=== PATIENT | female | born 1940 ===

== ENCOUNTER 2016-11-14 18:39 | Inpatient (IN) | payer MEDICARE, OTHER ==
[~2016-11-14] VITALS: Ht 157.5 cm; Wt 66.9 kg
[2016-11-14 19:35] VITALS: BMI 27.8
[2016-11-14] MEDS ORDERED: SYNTHROID75 MCG PO (20:09)
[2016-11-14] MEDS ORDERED: INDERAL 40 MG T40 MG PO (20:09)
[2016-11-14] MEDS ORDERED: SINGULAIR10 MG PO (20:11)
[2016-11-14] MEDS ORDERED: XANAX1 MG PO (20:11)
[2016-11-14] MEDS ORDERED: EFFEXOR XR150 MG PO (20:12)
[2016-11-14] MEDS ORDERED: ZOCOR40 MG PO (20:13)
[2016-11-14] MEDS ORDERED: VITAMIN D2000 UNIT PO (20:14)
[2016-11-14] MEDS ORDERED: VIC-FORTE CAPSUL1 MG PO (20:14)
[2016-11-14] MEDS ORDERED: ZYRTEC10 MG PO (20:14)
[2016-11-14] MEDS ORDERED: CALCIUM 600+D T1 TA1 PO (20:15)
[2016-11-14] MEDS ORDERED: IBUPROFEN400 MG PO (20:16)
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
[2016-11-15 06:57] LABS: HEMOGLOBIN A1C 5.3 % (4.8-6.0)
[2016-11-15 07:00] LABS: LDL-HDL RATIO 1.7 ratio (1.5-3.5)
[2016-11-15 07:40] VITALS: BP 170/80
[2016-11-15 13:24] VITALS: Ht 157.5 cm; Wt 66.9 kg
--- NOTE | 2016-11-15 14:10 | NUR ---
RECEIVED THIS AM SITTING IN CHAIR IN HALLWAY AT NURSES STATION.IS ORIENTED,CALM AND COOPERATIVE.ADMITS TO HALLUCINATIONS BUT NOT OBSERVED TO BE HAVING HALLUCINATIONS BY THIS NURSE.COMPLIANT WITH MEDS AND STAFF.WILL CONTINUE WITH PLAN OF CARE,MONITOR FOR CHANGES AND SAFETY.
--- NOTE | 2016-11-15 20:55 | NUR ---
RECEIVED IN DAYROOM. SETTING IN A RECLINING CHAIR. CALM AND COOPERATIVE WITH CARE AND ASSESSMENT. CALM AND COOPERATIVE WITH CARE AND ASSESSMENT. NO SIGNS OF PARANOIA. NO SIGNS OF HALLUCINATIONS. ENCOURAGE TO EXPRESS NEEDS. PM MEDS GIVEN ORDERED. CONTINUES TO SET QUIETLY IN WHEELCHAIR. CONTINUE PLAN OF CARE
--- NOTE | 2016-11-16 02:50 | NUR ---
AWAKENED AND AMBULATED OUT TO NURSES DESK. SHE WAS MAKING ALL KINDS OF BIZARRE STATEMENTS AND COMPLAINING OF THE "SMELL" IN HER ROOM. " I HAVE THOUGHT ABOUT KILLING MYSELF FOR A LONG TIME. I WANT TO GO HOME AND KILL MYSELF, THE BEST AND QUICKEST WAY, THE SMELL OR PILLS." WILL CONTINUE TO MONITOR CLOSELY.
--- NOTE | 2016-11-16 07:30 | NUR ---
In and out cath provided for urine specimen. Patient tolerated well, will send to lab.
[2016-11-16 08:08] VITALS: BP 155/96
[2016-11-16 08:31] LABS: UDS - AMPHET NEGATIVE QUAL (NEGATIVE); UDS - BARB NEGATIVE QUAL (NEGATIVE); UDS - BENZO NEGATIVE QUAL (NEGATIVE); UDS - COCAINE NEGATIVE QUAL (NEGATIVE); UDS - METH NEGATIVE QUAL (NEGATIVE); UDS - OPIATE NEGATIVE QUAL (NEGATIVE); UDS - PCP NEGATIVE QUAL (NEGATIVE); UDS - THC NEGATIVE QUAL (NEGATIVE)
[2016-11-16 09:11] LABS: APPEARANCE CLEAR (CLEAR); BACTERIA FEW /hpf (NONE SEEN); BILIRUBIN NEGATIVE (NEGATIVE); COLOR YELLOW (YELLOW); EPITHELIAL CELLS OCC /hpf (0-5); GLUCOSE NEGATIVE (NEGATIVE); KETONE MODERATE mg/dL (NEGATIVE); LEUKOCYTE ESTERASE TRACE (NEGATIVE); MUCUS <1+ /lpf (NONE SEEN); NITRITE NEGATIVE (NEGATIVE); PROTEIN NEGATIVE (NEGATIVE); RED CELLS - URINE 0-5 /hpf (0-5); SPECIFIC GRAVITY 1.015 (1.005-1.020); UROBILINOGEN NORMAL (NORMAL); WHITE CELLS - URINE OCC /hpf (0-5)
--- NOTE | 2016-11-16 13:20 | PSY ---
PATIENT NAME:ANN SANTO MEDICAL RECORD: [id number] : 36 LOCATION:[facility] ADMISSION DATE: 11/14/16 ACCOUNT: [id number] PSYCHIATRIC EVALUATION DATE OF EVALUATION: 11/15/16 IDENTIFYING DATA: The patient is 76 years old and she is admitted to the hospital on a voluntary basis. CHIEF COMPLAINT: Psychosis. HISTORY OF PRESENT ILLNESS: The patient is a very nice lady who initially presents fairly well. She has a good preservation of basic social skills and social interaction, but upon close questioning, it becomes quite clear that she is psychotic and upon examination, it becomes quite clear that she is demented. It seems that the patient lives in an apartment here. She is convinced that people are pumping gases of some kind into her apartment and it is trying to poison her. Apparently, there are other delusions about how these imaginary people are trying to harass her for imaginary and inconsistent and illogical reasons. The patient is very distressed by it and thoroughly convinced by it and does not even have insight that what she is saying sounds odd. Upon examination, it is clear that she has severe cognitive impairment. She denies depressive symptoms as well as substance abuse. She denies past psychiatric history. PAST MEDICAL HISTORY: Significant for hypothyroidism, COPD, hypercholesterolemia and hypertension. PAST PSYCHIATRIC HISTORY: Negative by her account and it is questionably reliable. FAMILY PSYCHIATRIC HISTORY: Denied. ALLERGIES: CODEINE AND HYDROCODONE. CURRENT MEDICATIONS: Include Inderal, Zocor, Synthroid. SOCIAL HISTORY: The patient is . She has no children. She is from [place], but lived most of her life in [place]. 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 She has no history of drug or alcohol abuse or legal entanglements and generally functioned reasonably well both socially and occupationally. MENTAL STATUS EXAMINATION: The patient is awake, alert and oriented to person, place and somewhat to situation. She is also oriented somewhat to date. Her mood is euthymic. Her affect is appropriate. Thought processes are goal directed. Memory, concentration and abstraction abilities are mildly impaired and she denies any active intent to harm herself or others. She denies overt psychotic symptoms, although she clearly displays them. She has no thoughts of harming herself or others. ASSETS: Stable living environment. Supportive family members. Stable living environment and supportive family members. LIABILITIES: Limited insight. 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 AXIS II: None. AXIS III: Hypothyroidism, hypertension, chronic obstructive pulmonary disease. AXIS IV: Moderate stressors. AXIS V: Global assessment of functioning is 35. PLAN: At this time, the provisional diagnosis is a dementia, type uncertain, but probably it is Alzheimer disease. I think the psychotic symptoms are associated with that. The patient says her sister has worked in a state hospital for many years and says that she has told her she is manic-depressive, but without a history of mental illness, one does not display habits of first onset of nyla or psychosis at 76. The explanation is much more organic almost certainly and at this point, I am going to have her tested by Dr. Chata Villalpando. I will check a urine drug screen because she is convinced she is being poisoned, but I anticipate the results will be negative. She has no evidence of substance abuse. Clearly, she is demented or impaired cognitively and the pattern appears to be consistent with dementia of the Alzheimer type. I am not going to start her on antipsychotic tonight. I would like to speak with her about this some more tomorrow and at that time, I will tell her what my provisional findings are. I think she is not going to accept that very readily. TRANSINT:[id number] Voice Confirmation ID: [id number] DOCUMENT ID: [id number] NELY HUBER MD at 1320 CC: [id number] DICTATION DATE: 11/15/16 174 CENTER REP: 11/15/16 1838 [facility] IN [facility] [address] [place] [address]
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
[2016-11-16 19:30] VITALS: BP 153/81
--- NOTE | 2016-11-17 01:51 | NUR ---
B) Quiet, watchful of peers. Claims her lost all her money, made no furthur accusations to staff about stealing from her. Correctly states her name, place and time. Somewhat understands why she is here, knows she was having some weird thoughts but unable to explain. No signs of hallucinations or delusions. No tearful episodes this evening. Flat affect, sullen and remains depressed. I) Administer medications as ordered, redirect and reorient PRN. R) Compliant with medications, aloof and guarded. P) Continue to monitor per plan of care.
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
[2016-11-17 08:12] VITALS: BP 147/79
--- NOTE | 2016-11-17 10:00 | NUR ---
Patient is oriented to self, knows she is in the hospital sometimes, but does not know what the name of it is at times. She is suspicious and guarded, did have to remove a male patient away from her as she was saying delusional statements and telling the other patient who is already paranoid to do this or that. When staff moved the male patient from her she followed him and tried to sit by him, explained to her that she was not able to sit by this patient at this time. She was compliant with this request. Patient is sitting under the TV and reading, she is not interacting except sometimes looks over at another patient and tells him to go ahead and go. Patient has participated in groups and she is making bizarre, delusional statements that go way off the subject. Continue to monitor. it is difficult to understand her conversation as she has loose associations and she is delusional.
--- NOTE | 2016-11-17 10:49 | NUR ---
Nutrition Follow Up: Chart reviewed. Pt is eating 44% meal avg on a Regular diet. Wt stable. +BM 11/16/16. Meds and labs noted. Pt with poor po intake. Rec continue current diet. Pt may benefit from an appetite stimulant. RD following.
--- NOTE | 2016-11-17 11:00 | NUR ---
Dr. Villalpando came and gave this patient a SLUMS test. She scored 17/30.
--- NOTE | 2016-11-17 14:49 | NUR ---
PATIENT SUSPICOUS OF ALL MEDICATIONS, AT FIRST REFUSED AND TOLD ME THAT WE WERE TRYING TO OVER-MEDICATE HER, PATIENT WAS REASSURED AND WAS SHOWN HER MEDICATION LABELS, PATIENT COMPLIED WITH MORNING MEDICATION. PATIENT REMAINS SUSPICIOUS, BUT DID COOPERATE DURING GROUP ACTIVITIES WHEN PROMPTED.
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
--- NOTE | 2016-11-17 17:28 | NUR ---
Patient gets up from the table and moves away in a hurry, but Brook asks her what she would like to eat for her next day meals, she stopped and listened, but she has a distressed appearance.
--- NOTE | 2016-11-17 17:32 | NUR ---
While Allison Ross was cleaning the day room. Where patient was sitting she had left a pair of her dirty panties on the book shelf. She had been carrying them around. Staff took them to the laundry room.
--- NOTE | 2016-11-17 17:46 | NUR ---
Patient is watchful and she is pacing around in the dining room, looking out of the windows, sitting then getting back up, she is watching staff and watching patients. Continue to monitor behavior.
[2016-11-17 19:24] VITALS: BP 130/67
--- NOTE | 2016-11-17 22:45 | NUR ---
B) Recieved sitting in a chair in the day room, alert and oriented to self, quiet and isolating, nervous and watching the other patients, I) Administered perscribed medications, redirected and oriented as needed, R) Medication compliant, non social with other patients, P) Continue plan of care, continue to monitor.
[2016-11-18 07:56] VITALS: BP 147/60
--- NOTE | 2016-11-18 12:54 | PN ---
PATIENT:ANN SANTO MEDICAL RECORD: [id number] LOCATION:[facility] ADMISSION DATE: 11/14/16 PROGRESS NOTE DATE OF SERVICE: 11/17/2016 SUBJECTIVE: The patient's case was discussed with staff. She has no new complaint. OBJECTIVE: The patient denies intent to harm herself or others. She generally tolerates her medicines well. ASSESSMENT: No change in diagnoses. PLAN: The patient got up last night about 3:30 in the morning, was very confused and made a number of delusional statements about people trying to hurt her. She was tested by Dr. Chata Villalpando today and clearly has evidence of impairment in the moderate to severe range with a score of 17 on the SLUMS. She clearly is going to need 86-gnlf-h-day supervision and the pattern on the testing was consistent with Alzheimer's disease. This is in agreement with what I observe clinically. TRANSINT:[id number] Voice Confirmation ID: [id number] DOCUMENT ID: [id number] NELY HUBER MD at 1254 CC: [id number] DICTATION DATE: 11/17/16 1225 [employer]ERILE PRODUCTS PROCESSOR: 11/17/16 1724 ADM IN [facility] [address] [place] [address]
--- NOTE | 2016-11-18 12:55 | PN ---
PATIENT:ANN SANTO MEDICAL RECORD: [id number] LOCATION:[facility] ADMISSION DATE: 11/14/16 PROGRESS NOTE DATE OF SERVICE: 11/16/2016 SUBJECTIVE: The patient's case was discussed with staff. She has no new complaint. OBJECTIVE: The patient is very paranoid and delusional. There are some people outside the room that were speaking in and she thinks that they are trying to come in and harm her. She is hypervigilant, believe she might be poisoned. She again insists that she has no psychiatric history. She made some statements about killing herself to the staff last night, but she now retracts them. I do plan to have her tested by Dr. Chata Villalpando. I think her long-term prognosis is guarded. TRANSINT:[id number] Voice Confirmation ID: [id number] DOCUMENT ID: [id number] NELY HUBER MD at 1255 CC: [id number] DICTATION DATE: 11/16/16 1328 TUBE SPLICER: 11/16/16 1556 ADM IN [facility] [address] [place] [address]
--- NOTE | 2016-11-18 13:30 | NUR ---
RECEIVED THIS AM SITTING IN CHAIR AT NURSES STATION.IS ORIENTED TO SELF.AMB PER SELF WITH STEADY GAIT.COMPLIANT WITH MEDS AND STAFF.TALKS WITH PEERS.WILL CONTINUE WITH PLAN OF CARE,MONITOR FOR CHANGES AND SAFETY.
--- NOTE | 2016-11-18 14:31 | NUR ---
Patient has been very paranoid and delusional did over hear her tell another patient that "Last night mu pillow was moving and talking" Unfortunately the other patient said "And it was real wasn't it" They both agreed. Patient is watchful of staff and peers and she is isolative. After lunch she sat in the dining room alone staring blankly at the wall that has the green covered board on it. After lunch she has joined the rest of the patients in the day room.
--- NOTE | 2016-11-18 15:00 | NUR ---
Provided patient her clean pants and shirt, she was shown to the bathromm two times to change in her clothes from the scrubs she slept in, patient told MHT "I've had them on for two weeks" MHT explained "They are clean" Patient hurriedly brought her clothes into the day room and refolded them and sat next to them.
--- NOTE | 2016-11-18 17:43 | NUR ---
Patients sister came to visit and she says that patients behavior is relatively new, she said "I see her every day or talk to her on the phone every day, this is all new" While patients sister was here visiting patient did start with her delusions and paranoia talk, patient did admit that she is seeing things and that she is paranoid, but then she started saying "I haven't had a bath, they won't let me bathe and all they want to do is give me medicine, everyday they change my medicine, it's part of the governement and it is all about the money."
[2016-11-18 19:30] VITALS: BP 132/76
--- NOTE | 2016-11-19 02:28 | NUR ---
B) Recieved in the day room watching TV, alert and oriented to self, hallucinating at times, seeing bugs comeing out of the light, I) Administered perscribed medications, redirected as needed, oriented to place and time, R) medications compliant, very nervous and confused, P) Continue plan of care, continue to monitor.
[2016-11-19 08:38] VITALS: BP 125/78
--- NOTE | 2016-11-19 10:08 | NUR ---
PT IS ANXIOUS AND VERY NERVOUS. PT IS PACING AND DIFFICULT TO REDIRECT. ORIENTED TO PERSON ONLY. PT EXPRESSED HALLUCINATIONS. SHE STATED THAT SHE IS SEEING SPIDERS, TELEPHONE NUMBERS ARE JUMPING OUT AT HER, AND SHE IS SMELLING MORPHINE. MED COMPLIANT. COPING SKILLS REVIEWED WITH PT. ENCOURAGED PT TO EXPRESS FEELINGS AND TELL STAFF WHEN SHE IS FEELING ANXIOUS. PARANOID DELUSIONS NOTED DURING ASSESSMENT. WILL CONTINUE TO MONITOR AND CONTINUE WITH PLAN OF CARE.
[2016-11-19 19:30] VITALS: BP 187/103
--- NOTE | 2016-11-19 20:09 | NUR ---
RECEIVED IN DAYROO. SETTING AT QUIETLY AT TABLE WITH PEERS. READING PAPER. CONFUSED. STATES SHE HASNT HAD MEDS IN THREE DAYS AND THAT SHE HAS BEEN FASTING FOR THOSE THREE DAYS. REDIRECTA ND REORIENT . CONTINUES TO SET QUIETLY READING THE PAPER. CONTINUE PLAN OF CARE
[2016-11-20 11:20] VITALS: BP 139/85
--- NOTE | 2016-11-20 17:53 | NUR ---
Alert and oriented to name, patient hallucinating during assessment this am, talking to unseen person, up and down throughout the day, noted to be looking around hallucinating, guarded.Med compliant Safety maintained. Continue plan of care.
--- NOTE | 2016-11-20 19:55 | NUR ---
RECEIVED IN DAYROOM. SETTING IN CHAIR WITH PEERS AT HER SIDE. CALM AND COOPERATIVE WITH CARE AND ASSESSMENT. NO SIGNS OF HALLUCINATIONS. NO DELUSIONAL OUTBUST. NO SIGNS OF PARANOIA. REDIRECT AND REORIENT NEEDED. CONTINUE PLAN OF CARE
[2016-11-20 20:37] VITALS: BP 169/76
[2016-11-21 14:08] VITALS: BP 152/92
--- NOTE | 2016-11-21 14:57 | PN ---
PATIENT:ANN SANTO MEDICAL RECORD: [id number] LOCATION:[facility] ADMISSION DATE: 11/14/16 PROGRESS NOTE DATE OF SERVICE: 11/20/2016 SUBJECTIVE: The patient's case was discussed with staff. She has no new complaint. OBJECTIVE: The patient is in good behavioral control with limited insight about her condition. She tolerates her medicines well. She is still having some ongoing psychotic symptoms. She has some paranoid and hypervigilance, but she is much less intense in her emotions when describing these. ASSESSMENT: No change in diagnoses. PLAN: Current medicines and therapies have been reviewed and will be maintained. Long-term prognosis is guarded. TRANSINT:[id number] Voice Confirmation ID: [id number] DOCUMENT ID: [id number] NELY HUBER MD at 1457 CC: [id number] DICTATION DATE: 11/20/16 1340 POWER SUPPLY ENGINEER: 11/20/16 1437 ADM IN [facility] [address] [place] [address]
--- NOTE | 2016-11-21 16:49 | NUR ---
RECEIVED THIS AM SITTING IN CHAIR AT NURSES STATION.IS CONFUSED AND PARANOID.QUESTIONS EACH MED AND STATES I DONT KNOW WHERE YOU GOT THEM.WHEN TOLD THEY CAME FROM THE HOSPITAL PHARM[facility]Y SHE SAID THAT'S EVEN WORSE.WOULD NOT TAKE ALL OF HER MEDS.WILL CONTINUE WITH PLAN OF CARE,MONITOR FOR CHANGES AND SAFETY.
[2016-11-21 19:28] VITALS: BP 127/66
--- NOTE | 2016-11-21 23:14 | NUR ---
RECEIVED IN DAYROOM. SETTING IN RECLINER WITH PEERS AT HER SIDE. SOCIALIZING AT TIMES. CALM AND COOPERATIVE WITH CARE AND ASSESSMENT. CONFUSED. REDIRECT AND REORIENT NEEDED. PM MEDS GIVEN ORDERED. RESTING EYES CLOSED AT THIS TIME. [id number] PLAN OF CARE
[2016-11-22 07:57] VITALS: BP 113/63
--- NOTE | 2016-11-22 09:00 | NUR ---
Patient is suspicious and paranoid. Sat with patient to go over am meds. Patient tells me she does not trust me. Explained to her that I understood, but I will go over every medicine and tell you what they are for and show you lab work that provides indication for prescription. Patient watched my every move, she then began making bizarre statements that this nurse was not able to follow. Patient is paranoid in her thoughts, she is less jerky in movements, but her conversations to me and to others is full of accusations about others. I) Provide prescribed meds and reorientate as needed to reality. R) Patient believes her delusions and she did listen when meds and labs were explained to her. She took all of her meds except Ibuprofen and she said she did not have any pain. P) Continue plan of care.
--- NOTE | 2016-11-22 09:09 | NUR ---
Nutrition Follow Up: Chart reviewed. Pt is eating 67% meal avg on a Regular diet. +BM 11/16/16 - no BM x 6 days. Meds noted including Vit D. No new labs to assess. Pt with improved po intake. Rec continue current diet. Pt may need bowel regimen. RD following.
--- NOTE | 2016-11-22 12:46 | PN ---
PATIENT:ANN SANTO MEDICAL RECORD: [id number] LOCATION:[facility] ADMISSION DATE: 11/14/16 PROGRESS NOTE DATE OF SERVICE: 11/21/2016 Psychiatric Progress Note SUBJECTIVE: The patient's case was discussed with staff. She has no new complaint. OBJECTIVE: The patient is in good behavioral control. She had no active hallucinations last night. ASSESSMENT: No change in diagnoses. PLAN: The patient will be started on Effexor at a dose of 37.5 mg twice daily. Effexor is being used to stabilize her underlying mood. This was part of my original treatment strategy, it was simply a matter of starting her on an antipsychotic and making sure she was having reasonable tolerance of that before beginning this medication. TRANSINT:[id number] Voice Confirmation ID: [id number] DOCUMENT ID: [id number] NELY HUBER MD at 1246 CC: [id number] DICTATION DATE: 11/21/16 1519 LAUNCH CHECK OUT: 11/21/16 1551 ADM IN [place] [id number] [place] [address]
[2016-11-22 19:27] VITALS: BP 139/67
--- NOTE | 2016-11-23 00:05 | NUR ---
B) Recieved sitting in the day room, alert and oriented to self, nervous and restless at times, easily startled, withdrawn , I) Administered perscribed medications, redirected and oriented as needed, R) Medication compliant, cooperative with staff, P) Continue plan of care, continue to monitor
[2016-11-23 07:50] VITALS: BP 158/73
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
[2016-11-23 22:07] VITALS: BP 146/84
--- NOTE | 2016-11-24 02:23 | NUR ---
B) recieved sitting in the day room, alert ad oriented to self, withdrawn and keeping to her self, watching TV, calm and pleasant, I) Administered perscribed medications, redirect and oriented as needed, R) Medication compliant, very confused, hallucinating at times, P) Continue plan of care, continue to monitor.
[2016-11-24 08:55] VITALS: BP 162/61
--- NOTE | 2016-11-24 13:20 | NUR ---
(B)RECEIVED PATIENT SITTING IN A CHAIR AT THE NURSE'S STATION. ORIENTED TO SELF AND PLACE RELATING "[facility]. IT'S JUST A BUILDING. NOT A HOSPITAL." DELUSIONAL RELATING "I ALSO HAVE A YEAST INFECTION. I KNOW THE SENSATION. IT COMES OUT OF MY FINGER TIPS" (PATIENT IS TOUCHING EACH END OF HER FINGERS WITH HER THUMB SHE TELLS NURSE THIS). (I)ADMINISTER MEDS AND MONITOR COMPLIANCE. REDIRECT FOR DELUSIONAL THOUGHTS. (R)MED COMPLIANT. POOR REDIRECTION DUE TO INABILITY TO SEPARATE FANTASY FROM REALITY. (P)CONTINUE POC AND MAINTAIN FALL PRECAUTIONS.
--- NOTE | 2016-11-24 15:13 | NUR ---
LATE ENTRY 11/23 SW MET WITH PT'S SISTER, ADI, TO DISCUSS DISCHARGE PLANNING AND MEDICATION CHANGES. PAT VERBALIZED UNDERSTANDING OF MEDICATION ADJUSTMENTS. SW REPORTED PT DENYING MEDICAITON THIS AM. PAT STATED SHE WOULD TALK TO HER ABOUT TAKING HER MEDICATION HERE.
[2016-11-24 19:30] VITALS: BP 154/53
--- NOTE | 2016-11-25 01:39 | NUR ---
Patient was pleasant, polite, calm and quiet. Oriented to person and place. Patient is not exhibiting paranoia at this time. Continue plan of care.
[2016-11-25 09:03] VITALS: BP 99/73
--- NOTE | 2016-11-25 10:45 | NUR ---
B.) Alert and oriented to name and some what to place, states " yes, it's a hospital, but it's just a building not a real hospital." patient looking around with suspicious look on her face. I.) Administer medications and monitor compliance, redirect for any inappropriate behavior and reorient as need. Refocus to reality versus nonreality. R.) Compliant with medications, no evidence of reorientation, as patient can not separate reality for nonreality, verbalized " i smell things, not sure what that thing was." patient paces often and looks confused when given directions. No aggression, paranoia and suspicious behavior. P.) Continue plan of care.
[2016-11-25 19:30] VITALS: BP 156/67
--- NOTE | 2016-11-25 21:33 | NUR ---
B) Recieved sitting in the day room alert and oriented to self, scanning vision, very quiet, watching the room, I) Administered perscribed medications, redirected and oriented as needed, R) Medication compliant, cooperative with staff, waiting for bed, P) Continue plan of care, continue to monitor.
--- NOTE | 2016-11-26 07:54 | PN ---
PATIENT:ANN SANTO MEDICAL RECORD: [id number] LOCATION:[facility] ADMISSION DATE: 11/14/16 PROGRESS NOTE DATE OF SERVICE: 11/24/2016 SUBJECTIVE: No new complaint. OBJECTIVE: The patient continues to exhibit florid paranoid delusional ideation. The patient has been tested in exhibits gnabsszr-lu-dtsxfd dementia. She is tolerating medication change recently done. On exam, mood is somewhat irritable. Affect is overall brittle. Speech is rather terse. Content of thought is positive for paranoid ideation. Sensorium shows no change. ASSESSMENT: No change in diagnosis. PLAN: 1. Continue present medications. 2. Continue supportive therapy. TRANSINT:[id number] Voice Confirmation ID: [id number] DOCUMENT ID: [id number] RUTH KINNEY III, MD at 0754 CC: [id number] DICTATION DATE: 11/24/16 1050 CLINICAL EDITOR: 11/24/16 1304 ADM IN [place] [id number] [place] [address]
[2016-11-26 10:07] VITALS: BP 165/96
--- NOTE | 2016-11-26 14:46 | NUR ---
ORIENTED TO PERSON AND THE FACT THAT SHE IS IN A HOSPTIAL. SOME PARANOIA NOTED BUT PT WILL NOT EXPLAIN FEELINGS. ENCOURAGED PT TO COMMUNICATE NEEDS AND FEELINGS TO STAFF. EXPLAINED TO PT THAT THIS WAS A SAFE PLACE AND SHE COULD SPEAK FREELY. MED COMPLIANT. WILL CONTINUE TO MONITOR AND CONTINUE WITH PLAN OF CARE.
[2016-11-26 19:30] VITALS: BP 134/59
--- NOTE | 2016-11-26 20:10 | NUR ---
RECEIVED IN DAYROOM SETTING IN CHAIR WITH PEERS AT HER SIDE. CALM AND COOPERATIVE WITH CARE AND ASSESSMENTS. NO SIGNS OF HALLUCINATIONS. NO SIGNS OF PARANOIA. REDIRECT AND REORIENT NEEDED. ENCOURAGE TO EXPRESS NEEDS. CONTINUES TO SET QUIETLY. CONTINUE PLAN OF CARE
[2016-11-27 10:31] VITALS: BP 159/80
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
--- NOTE | 2016-11-27 16:52 | NUR ---
RECEIVED THIS AM SITTING IN CHAIR IN HALLWAY AT NURSES STATION.IS ORIENTED.CALM AND COOPERATIVE.HELPS WITH ANOTHER FEMALE PATIENT.COMPLIANT WITH MEDS.WILL CONTINUE WITH PLAN OF CARE,MONITOR FOR CHANGES AND SAFETY.
[2016-11-27 20:00] VITALS: BP 135/65
--- NOTE | 2016-11-27 20:08 | NUR ---
RECEIVED IN DAYROOM. SETTING IN CHAIR WITH A PEER AT HER SIDE. SOCIALIZING WITH A PEER AT TIMES.. CALM AND COOPERATIVE WITH CARE AND ASSESSMENT. NO SIGNS OF HALLUCINATIONS. NO SIGNS OF PARANOIA. REMAINS IN CHAIR CALM AND COOPERATIVE, CONTINUE PLAN OF CARE
[2016-11-28 08:31] VITALS: BP 160/69
--- NOTE | 2016-11-28 10:32 | NUR ---
Nutrition Follow Up: Chart reviewed. Pt is eating 54% meal avg on a Regular diet. +BM 11/27/16. No new labs to assess. Meds noted. Pt with fair po intake at this time. Rec continue current diet. Will send Ensure with meals. Will continue to send selective menus and honor food preferences. RD following.
--- NOTE | 2016-11-28 12:43 | NUR ---
B.) Alert and oriented to name and some what to place, patient rushs out of her room then rushes back in stating" my legs are hurting, I think if I change my pants and socks they will stop hurting." asked patient if she really thought that would help and why.. she states yes but cant explain to me why. Verbalized not today for any type of hallucination other than. "I had dreams all night, worst night I have had, but not so far on seeing and hearing things." I.) Administer medications and monitor compliance. Monitor for any hallucinations or inappropriate behavior. Redirect and refocus to reality versus nonreality as need. Monitor safety. P.) Continue plan of care.
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
[2016-11-28 19:31] VITALS: BP 151/77
--- NOTE | 2016-11-28 23:36 | NUR ---
PATIENT RECIEVED IN DAYROOM, PATIENT DENIES HALLUCINATIONS, DENIES SUICIDAL IDEATIONS. ORIENTED TO PERSON, PLACE, TIME, AND SITUATION. PATIENT SHOWING NO PARANOIA OR SUSPICION, CALMLY TOOK MEDICATION WITHOUT COAXING. CONTINUE TO MONITOR, CONTINUE PLAN OF CARE.
[2016-11-29 08:02] VITALS: BP 146/54
--- NOTE | 2016-11-29 16:40 | PN ---
PATIENT:ANN SANTO MEDICAL RECORD: [id number] LOCATION:[facility] ADMISSION DATE: 11/14/16 PROGRESS NOTE DATE OF SERVICE: 11/28/2016 SUBJECTIVE: The patient's case was discussed with staff. She has no new complaint. OBJECTIVE: The patient is in good behavioral control with limited insight about her condition. She does tolerate her medications well. She is much less delusional and much calmer and cooperative. ASSESSMENT: No change in diagnoses. PLAN: I anticipate the patient can be transitioned out of the hospital soon if this level of improvement is maintained. Her long-term prognosis is guarded. TRANSINT:[id number] Voice Confirmation ID: [id number] DOCUMENT ID: [id number] NELY HUBER MD at 1640 CC: [id number] DICTATION DATE: 11/28/16 1400 CAREER COUNSELOR: 11/28/16 1943 ADM IN [facility] [address] [place] [address]
--- NOTE | 2016-11-29 18:33 | NUR ---
RECEIVED SITTING IN CHAIR IN DAYROOM.ORIENTED TO SELF AND HOSPITAL.DENIES HALLUCINATIONS TODAY.COMPLIANT WITH MEDS.HELPFUL WITH PEERS.QUITE MOST OF THE TIME,SITS AND OBSERVES OTHERS.AMBULATES WITH A STEADY GAIT.WILL CONTINUE WITH PLAN OF CARE,MONITOR FOR CHANGES AND SAFETY.
[2016-11-29 19:14] VITALS: BP 162/70
--- NOTE | 2016-11-29 22:03 | NUR ---
PATIENT IN DAYROOM, WATCHING PEERS AND STAFF. ORIENTED TO PERSON, DENIES HALLUCINATIONS OR THOUGHTS OF SELF HARM. PATIENT STATES SHE HAS A YEAST INFECTION COMING OUT OF HER FINGERS. HAS CONFUSION OF WHERE SHE IS AT THIS TIME. PATIENT REORIENTED. NOT PARANOID OR SUSPICIOUS. PLEASANT AND COOPERATIVE WITH MEDICATION. CONTINUE TO MONITOR, CONTINUE PLAN OF CARE.
[2016-11-30 09:05] VITALS: BP 174/77
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
--- NOTE | 2016-11-30 13:22 | PN ---
PATIENT:ANN SANTO MEDICAL RECORD: [id number] LOCATION:[facility] ADMISSION DATE: 11/14/16 PROGRESS NOTE DATE OF SERVICE: 11/29/2016 SUBJECTIVE: The patient's case was discussed with staff. She has no new complaint. OBJECTIVE: The patient is in good behavioral control with limited insight about her condition. She tolerates her medicines well. ASSESSMENT: No change in diagnoses. PLAN: Current medicines and therapies have been reviewed and will be maintained. Long-term prognosis is guarded. TRANSINT:[id number] Voice Confirmation ID: [id number] DOCUMENT ID: [id number] NELY HUBER MD at 1322 CC: [id number] DICTATION DATE: 11/29/161650 SURGERY SPECIALIST: 11/29/162055 ADM IN [facility] [address] [place] [address]
[2016-11-30 19:30] VITALS: BP 171/82
--- NOTE | 2016-12-01 02:44 | NUR ---
B) Recieved sitting in the dinning room alert and oriented to self, laughted at my jokes appropiately and folowed conversation I) Administered Perscribed medications, redirected as needed, R) Medication compliant, cooperative with staff, friendly and pleasant, P) Continue plan of care, continue to monitor.
--- NOTE | 2016-12-01 08:17 | PN ---
PATIENT:ANN SANTO MEDICAL RECORD: [id number] LOCATION:[facility]112 ADMISSION DATE: 11/14/16 PROGRESS NOTE DATE OF SERVICE: 11/30/2016 SUBJECTIVE: The patient's case was discussed with staff. She has no new complaint. OBJECTIVE: The patient denies intent to harm herself or others. She generally tolerates her medicines well and is much less delusional. Unfortunately, she is not eating as well as she has been, but has no explanation for this. ASSESSMENT: No change in diagnoses. PLAN: The patient will be maintained on current medicines. I think her condition is improving. She actually remembered some of what we talked about yesterday. The information she remembered from yesterday was insignificant and casual [place] and I am impressed that she recalled those. TRANSINT:[id number] Voice Confirmation ID: [id number] DOCUMENT ID: [id number] NELY HUBER MD at 0817 CC: [id number] DICTATION DATE: 11/30/16 1320 RAILROAD MECHANIC: 11/30/16 1813 ADM IN [facility] [address] [place] [id number]
[2016-12-01 08:19] VITALS: BP 142/66
[2016-12-01] MEDS ORDERED: ARICEPT5 MG PO (13:11)
[2016-12-01] MEDS ORDERED: FEXOFENADINE HC60 MG PO (13:11)
[2016-12-01] MEDS ORDERED: RISPERDAL0.5 MG PO (13:12)
[2016-12-01] MEDS ORDERED: EFFEXOR37.5 MG PO (13:12)
[2016-12-01] MEDS ORDERED: DEPAKOTE500 MG PO (13:12)
--- NOTE | 2016-12-01 18:33 | NUR ---
Alert and oriented times three, not sure what situation is, nurse over heard patient talking to another patient stating. " I had hallucinations real bad, I thought they were real, now I'm better and you will be too." Thought process is logical today, ambulated around in room with appropriate conversation with no hallucinations or delusions. Compliant with medications. Plans for discharge today home with sister. Attempted several times to call patient sister as listed on face sheet, number disconnected, programming coordinator Jackie attempted as well. Nurse asked patient if she knew the number she was unable to recall at this time.
[2016-12-01 19:42] VITALS: BP 153/85
--- NOTE | 2016-12-02 01:18 | NUR ---
B) Recieved sitting in the day room, alert and oriented to self, calm and quiet this shift, I) Administered perscribed medications, redirected as needed, R) Medication compliqant, resting quietly now, P) Continue plan of care, continue to monitor.
[2016-12-02 07:48] VITALS: BP 139/68
--- NOTE | 2016-12-02 08:10 | NUR ---
B) PATIENT IS AWAKE AND ALERT AND SHE IS ABLE TO MAKE NEEDS KNOWN. SHE IS NOT MAKING PARANOID STATEMENTS TODAY, SHE HAS TAKEN HER MEDICATIONS. SHE IS CALM, INTERACTS APPROPRIATELY WITH STAFF AND PEERS. PATIENT IS AMBULATORY AND SHE IS INDEPENDENT WITH ADL'S. I) PROVIDE PRESCRIBED PAIN MEDS, REDIRECT NEEDED. R) PATIENT IS CALM AND COMPLIANT WITH MEDS AND UNIT MILIEU. P) CONTINUE PLAN OF CARE.
--- NOTE | 2016-12-02 08:28 | PN ---
PATIENT:ANN SANTO MEDICAL RECORD: [id number] LOCATION:[facility] ADMISSION DATE: 11/14/16 PROGRESS NOTE DATE OF SERVICE: 12/01/2016 SUBJECTIVE: The patient's case was discussed with staff. She has no new complaint. OBJECTIVE: The patient is tolerating her medicines very well. She has no evidence of acute or direct dangerousness. She is still delusional, but dramatically improved. She does not bring the hallucinations up unless they are directly asked about and even then when she discusses them, she does not have anything close to be same degree of distress that she was previously experiencing. She clearly has improved. I think she is no longer acutely or directly dangerous. She will be transitioned out of the hospital soon and her family wants to take care of her at home. She should have followup with an outpatient psychiatrist and that has been arranged. TRANSINT:[id number] Voice Confirmation ID: [id number] DOCUMENT ID: [id number] NELY HUBER MD at 0828 CC: [id number] DICTATION DATE: 12/01/16 1307 NUCLEAR SCIENTIST: 12/01/16 1947 ADM IN [facility] [address] [place] [address]
[2016-12-02 09:00] VITALS: BP 139/68
[2016-12-02 19:30] VITALS: BP 154/81
--- NOTE | 2016-12-03 01:15 | NUR ---
B) Recieved sitting in the day room, alert and oriented to self and hospital, calm and cooperative, no reported hallucinations,I) administered perscribed medications, R) Medication compliant, no behaviors this shift, P) Continue plan of care, continue to monitor.
[2016-12-03 07:30] VITALS: BP 103/56
--- NOTE | 2016-12-03 16:17 | NUR ---
ORIENTED TO PERSON, PLACE, AND TIME. ADMINISTERED MEDS AND PT WAS COMPLIANT. NO AGGRESSION NOTED. NO HALLUCINATIONS NOTED. COOPERATIVE WITH CARE. ENCOURAGED PT TO PARTICIPATE IN GROUPS. PT'S SISTER CAME TO VISIT DURING VISITATION. EXPLAINED THAT WE HAD BEEN ATTEMPTED TO CONTACT HER SO THE PT COULD DISCHARGE. MEDICATIONS CALLED INTO [facility] AND DR. WEBB WILL BE CONTACTED TOMORROW FOR FU APPT. ALL BELONGINGS SENT WITH PT.
--- NOTE | 2016-12-04 13:58 | PN ---
PATIENT:ANN SANTO MEDICAL RECORD: [id number] LOCATION:[facility] ADMISSION DATE: 11/14/16 PROGRESS NOTE DATE OF SERVICE: 12/03/2016 SUBJECTIVE: The patient's case was discussed with staff. She has no new complaint. OBJECTIVE: The patient is in good behavioral control with limited insight about her condition. She tolerates her medicines well. She is much less delusional. ASSESSMENT: No change in diagnoses. PLAN: Current medicines have been reviewed and will be maintained. Long-term prognosis is guarded. I anticipate she can be transitioned out of the hospital soon. TRANSINT:[id number] Voice Confirmation ID: [id number] DOCUMENT ID: [id number] NELY HUBER MD at 1358 CC: [id number] DICTATION DATE: 12/03/16 1234 BROADCAST SYSTEMS ENGINEER: 12/03/16 1520 DIS IN 12/03/16 [facility] [address] [place] [address]
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
== END 2016-12-03 17:30 | disposition home or self-care (01) | DRG 57 ==
LOC: D.PSYCH 18:39
PROVIDERS: ADMIT Psychiatry & Neurology Psychiatry
DX: G30.1 Alzheimer's disease with late onset (principal); F02.80 Dementia in other diseases classified elsewhere, unspecified severity, without behavioral disturbance, psychotic disturbance, mood disturbance, and anxiety; E03.9 Hypothyroidism, unspecified; I10 Essential (primary) hypertension; J44.9 Chronic obstructive pulmonary disease, unspecified; F41.9 Anxiety disorder, unspecified; F32.9 Major depressive disorder, single episode, unspecified; E78.5 Hyperlipidemia, unspecified; K58.9 Irritable bowel syndrome, unspecified; E55.9 Vitamin D deficiency, unspecified; G47.33 Obstructive sleep apnea (adult) (pediatric); Z87.891 Personal history of nicotine dependence